=== PATIENT | male | born 1970 ===

== ENCOUNTER 2017-05-13 09:51 | Outpatient (CLI) | payer OTHER ==
[~2017-05-13] VITALS: Ht 177.8 cm; Wt 95.3 kg
== END 2017-05-13 10:10 | disposition home or self-care (01) ==
LOC: OFIC 805 09:51
DX: J34.2 Deviated nasal septum (principal); G47.39 Other sleep apnea; J34.89 Other specified disorders of nose and nasal sinuses; S02.2XXS Fracture of nasal bones, sequela; X58.XXXS Exposure to other specified factors, sequela; R06.09 Other forms of dyspnea

== ENCOUNTER 2017-10-13 14:16 | Outpatient (CLI) | payer OTHER ==
[~2017-10-13] VITALS: Ht 152.4 cm; Wt 95.3 kg
== END 2017-10-13 14:30 | disposition home or self-care (01) ==
LOC: OFIC 805 14:16
DX: R09.81 Nasal congestion (principal); S02.2XXS Fracture of nasal bones, sequela; G47.39 Other sleep apnea